=== PATIENT | female | born 1955 | race Caucasian/White ===

== ENCOUNTER 2020-09-06 14:25 | Outpatient (REF) | payer BC, SELFPAY ==
[2020-09-06 14:34] LABS: MANUAL DIFF FLAG NO
[2020-09-06 14:39] LABS: Basophils Percent Auto 0.6 % (0-2); Eosinophils Absolute Auto 0.2 X10*3/uL (0.0-0.4); Eosinophils Percent Auto 3.4 % (0-4); Hematocrit 29.6 % (37-47); Hemoglobin 9.6 g/dl (12.0-16.0); Imm Gran Abs Auto 0.03 X10*3/uL (0.00-0.03); Imm Gran Pct Auto 0.6 % (0.0-0.4); Lymphocytes Percent Auto 20.9 % (20-40); Mean Corpuscular HGB Conc 32.4 g/dl (31.0-35.0); Mean Corpuscular Hemoglobin 27.7 pg (27.0-33.0); Mean Corpuscular Volume 85.5 fL (80-98); Monocytes Absolute Auto 0.4 X10*3/uL (0.1-1.2); Monocytes Percent Auto 9.1 % (2-11); Neutrophils Absolute Auto 3.1 X10*3/uL (2.0-8.3); Neutrophils Percent Auto 65.4 % (45-73); Platelet Count 307 X10*3/uL (160-400); Red Blood Count 3.46 X10*6/uL (4.20-5.50); Red Cell Distribution Width 13.7 % (11.0-16.0); White Blood Count 4.7 X10*3/uL (4.8-10.8)
[2020-09-06 15:14] LABS: Alanine Aminotransferase 11 U/L (0-31); Albumin Level 3.4 g/dL (3.5-5.0); Alkaline Phosphatase 90 U/L (39-117); Aspartate Amino Transferase 17 U/L (5-31); Bilirubin Direct < 0.2 mg/dL (0.0-0.5); Bilirubin Total 0.3 mg/dL (0.0-1.0); Blood Urea Nitrogen 13 mg/dL (9-16); Estimated Glomerular Filt Rate > 60; Total Protein 5.6 g/dL (6.5-8.0)
== END 2020-09-06 14:26 | disposition home or self-care (01) ==
LOC: HO.HVNA 14:25
PROVIDERS: PCP Internal Medicine; Visit Provider Internal Medicine Infectious Disease
DX: B99.9 Unspecified infectious disease (principal); Z79.2 Long term (current) use of antibiotics
CPT/HCPCS: 80076; 80202; 82565; 84520; 85025

== ENCOUNTER 2020-09-13 10:10 | Outpatient (REF) | payer BC, SELFPAY ==
[2020-09-13 10:17] LABS: MANUAL DIFF FLAG NO
[2020-09-13 10:20] LABS: Basophils Percent Auto 0.5 % (0-2); Eosinophils Absolute Auto 0.2 X10*3/uL (0.0-0.4); Eosinophils Percent Auto 4.6 % (0-4); Hematocrit 34.2 % (37-47); Hemoglobin 10.9 g/dl (12.0-16.0); Imm Gran Abs Auto 0.02 X10*3/uL (0.00-0.03); Imm Gran Pct Auto 0.5 % (0.0-0.4); Lymphocytes Absolute Auto 0.9 X10*3/uL (1.2-4.9); Lymphocytes Percent Auto 25.4 % (20-40); Mean Corpuscular HGB Conc 31.9 g/dl (31.0-35.0); Mean Corpuscular Hemoglobin 27.2 pg (27.0-33.0); Mean Corpuscular Volume 85.3 fL (80-98); Mean Platelet Volume 9.1 fL (9.4-12.3); Monocytes Absolute Auto 0.5 X10*3/uL (0.1-1.2); Monocytes Percent Auto 13.4 % (2-11); Neutrophils Percent Auto 55.6 % (45-73); Platelet Count 300 X10*3/uL (160-400); Red Blood Count 4.01 X10*6/uL (4.20-5.50); Red Cell Distribution Width 13.9 % (11.0-16.0); White Blood Count 3.7 X10*3/uL (4.8-10.8)
[2020-09-13 11:19] LABS: Alanine Aminotransferase 12 U/L (0-31); Albumin Level 3.7 g/dL (3.5-5.0); Alkaline Phosphatase 110 U/L (39-117); Aspartate Amino Transferase 19 U/L (5-31); Bilirubin Direct 0.2 mg/dL (0.0-0.5); Bilirubin Total 0.5 mg/dL (0.0-1.0); Blood Urea Nitrogen 12 mg/dL (9-16); Estimated Glomerular Filt Rate > 60; Total Protein 6.3 g/dL (6.5-8.0)
[2020-09-13 11:38] LABS: Vancomycin Trough 15.1 mcg/mL (10.0-20.0)
== END 2020-09-13 10:11 | disposition home or self-care (01) ==
LOC: HO.HVNA 10:10
PROVIDERS: Visit Provider Internal Medicine Infectious Disease
DX: T84.53XA Infection and inflammatory reaction due to internal right knee prosthesis, initial encounter (principal); Z79.2 Long term (current) use of antibiotics
CPT/HCPCS: 36415; 80076; 80202; 82565; 84520; 85025

== ENCOUNTER 2020-09-16 10:18 | Outpatient (REF) | payer BC, SELFPAY ==
[2020-09-16 11:08] LABS: Blood Urea Nitrogen 12 mg/dL (9-16); C Reactive Protein 1.56 mg/dL (< or = 0.50); Estimated Glomerular Filt Rate > 60
[2020-09-16 11:32] LABS: Erythrocyte Sedimentation Rate 17 MM/HR (0-20)
[2020-09-16 11:34] LABS: Vancomycin Trough 15.4 mcg/mL (10.0-20.0)
== END 2020-09-16 10:19 | disposition home or self-care (01) ==
LOC: HO.HVNA 10:18
PROVIDERS: Visit Provider Internal Medicine Infectious Disease
DX: T84.53XA Infection and inflammatory reaction due to internal right knee prosthesis, initial encounter (principal); Z79.2 Long term (current) use of antibiotics
CPT/HCPCS: 36415; 80202; 82565; 84520; 85652; 86140

== ENCOUNTER 2020-09-20 09:55 | Outpatient (REF) | payer BC, SELFPAY ==
[2020-09-20 10:08] LABS: Basophils Percent Auto 0.9 % (0-2); Eosinophils Absolute Auto 0.2 X10*3/uL (0.0-0.4); Hematocrit 34.4 % (37-47); Hemoglobin 11.2 g/dl (12.0-16.0); Imm Gran Abs Auto 0.01 X10*3/uL (0.00-0.03); Imm Gran Pct Auto 0.5 % (0.0-0.4); Lymphocytes Absolute Auto 0.6 X10*3/uL (1.2-4.9); Lymphocytes Percent Auto 28.6 % (20-40); MANUAL DIFF FLAG SCAN; Mean Corpuscular HGB Conc 32.6 g/dl (31.0-35.0); Mean Corpuscular Hemoglobin 27.3 pg (27.0-33.0); Mean Corpuscular Volume 83.9 fL (80-98); Monocytes Absolute Auto 0.4 X10*3/uL (0.1-1.2); Monocytes Percent Auto 16.9 % (2-11); Neutrophils Percent Auto 45.1 % (45-73); Platelet Count 201 X10*3/uL (160-400); Red Cell Distribution Width 13.7 % (11.0-16.0); SCAN SMEAR FLAG 1
[2020-09-20 10:11] LABS: White Blood Count 2.1 X10*3/uL (4.8-10.8)
[2020-09-20 10:18] LABS: Alanine Aminotransferase 15 U/L (0-31); Albumin Level 3.9 g/dL (3.5-5.0); Alkaline Phosphatase 120 U/L (39-117); Aspartate Amino Transferase 21 U/L (5-31); Bilirubin Direct 0.2 mg/dL (0.0-0.5); Bilirubin Total 0.5 mg/dL (0.0-1.0); Blood Urea Nitrogen 9 mg/dL (9-16); Estimated Glomerular Filt Rate > 60; Total Protein 6.5 g/dL (6.5-8.0)
[2020-09-20 10:25] LABS: SLIDE REVIEW VERIFIED
[2020-09-20 10:37] LABS: Vancomycin Trough 14.9 mcg/mL (10.0-20.0)
== END 2020-09-20 09:56 | disposition home or self-care (01) ==
LOC: HO.LNP 09:55
PROVIDERS: Visit Provider Internal Medicine Infectious Disease
DX: T84.53XA Infection and inflammatory reaction due to internal right knee prosthesis, initial encounter (principal); Z79.2 Long term (current) use of antibiotics
CPT/HCPCS: 80076; 80202; 82565; 84520; 85025

== ENCOUNTER 2020-09-23 10:30 | Outpatient (REF) | payer BC, SELFPAY ==
[2020-09-23 11:11] LABS: Basophils Percent Auto 1.2 % (0-2); Eosinophils Absolute Auto 0.2 X10*3/uL (0.0-0.4); Eosinophils Percent Auto 10.7 % (0-4); Hematocrit 33.9 % (37-47); Hemoglobin 10.8 g/dl (12.0-16.0); Imm Gran Abs Auto 0.01 X10*3/uL (0.00-0.03); Imm Gran Pct Auto 0.6 % (0.0-0.4); Lymphocytes Absolute Auto 0.6 X10*3/uL (1.2-4.9); Lymphocytes Percent Auto 34.3 % (20-40); MANUAL DIFF FLAG SCAN; Mean Corpuscular HGB Conc 31.9 g/dl (31.0-35.0); Mean Corpuscular Hemoglobin 26.8 pg (27.0-33.0); Mean Corpuscular Volume 84.1 fL (80-98); Mean Platelet Volume 9.7 fL (9.4-12.3); Monocytes Absolute Auto 0.2 X10*3/uL (0.1-1.2); Monocytes Percent Auto 14.2 % (2-11); Neutrophils Absolute Auto 0.7 X10*3/uL (2.0-8.3); Platelet Count 182 X10*3/uL (160-400); Red Blood Count 4.03 X10*6/uL (4.20-5.50); Red Cell Distribution Width 13.8 % (11.0-16.0); SCAN SMEAR FLAG 1
[2020-09-23 11:26] LABS: White Blood Count 1.7 X10*3/uL (4.8-10.8)
[2020-09-23 11:42] LABS: Blood Urea Nitrogen 8 mg/dL (9-16); Estimated Glomerular Filt Rate > 60
[2020-09-23 11:46] LABS: Vancomycin Trough 14.7 mcg/mL (10.0-20.0)
[2020-09-23 12:05] LABS: SLIDE REVIEW VERIFIED
== END 2020-09-23 10:31 | disposition home or self-care (01) ==
LOC: HO.LNP 10:30
PROVIDERS: Visit Provider Internal Medicine Infectious Disease
DX: T84.53XA Infection and inflammatory reaction due to internal right knee prosthesis, initial encounter (principal); Z45.2 Encounter for adjustment and management of vascular access device
CPT/HCPCS: 80202; 82565; 84520; 85025

== ENCOUNTER 2020-09-27 11:12 | Outpatient (REF) | payer BC, SELFPAY ==
[2020-09-27 11:23] LABS: MANUAL DIFF FLAG NO
[2020-09-27 11:28] LABS: Basophils Percent Auto 1.1 % (0-2); Eosinophils Absolute Auto 0.2 X10*3/uL (0.0-0.4); Eosinophils Percent Auto 4.6 % (0-4); Hematocrit 35.4 % (37-47); Hemoglobin 11.3 g/dl (12.0-16.0); Imm Gran Abs Auto 0.02 X10*3/uL (0.00-0.03); Imm Gran Pct Auto 0.5 % (0.0-0.4); Lymphocytes Absolute Auto 1.6 X10*3/uL (1.2-4.9); Lymphocytes Percent Auto 42.7 % (20-40); Mean Corpuscular HGB Conc 31.9 g/dl (31.0-35.0); Mean Corpuscular Hemoglobin 26.8 pg (27.0-33.0); Mean Corpuscular Volume 83.9 fL (80-98); Mean Platelet Volume 9.1 fL (9.4-12.3); Monocytes Absolute Auto 0.3 X10*3/uL (0.1-1.2); Monocytes Percent Auto 8.1 % (2-11); Neutrophils Absolute Auto 1.6 X10*3/uL (2.0-8.3); Platelet Count 248 X10*3/uL (160-400); Red Blood Count 4.22 X10*6/uL (4.20-5.50); Red Cell Distribution Width 13.7 % (11.0-16.0); White Blood Count 3.7 X10*3/uL (4.8-10.8)
[2020-09-27 12:04] LABS: Alanine Aminotransferase 58 U/L (0-31); Alkaline Phosphatase 113 U/L (39-117); Aspartate Amino Transferase 36 U/L (5-31); Bilirubin Direct 0.2 mg/dL (0.0-0.5); Bilirubin Total 0.5 mg/dL (0.0-1.0); Blood Urea Nitrogen 11 mg/dL (9-16); Estimated Glomerular Filt Rate > 60; Total Protein 6.6 g/dL (6.5-8.0)
== END 2020-09-27 11:13 | disposition home or self-care (01) ==
LOC: HO.LNP 11:12
PROVIDERS: Visit Provider Internal Medicine Infectious Disease
DX: T84.53XA Infection and inflammatory reaction due to internal right knee prosthesis, initial encounter (principal); Z79.2 Long term (current) use of antibiotics
CPT/HCPCS: 80076; 82550; 82565; 84520; 85025

== ENCOUNTER 2020-10-04 12:25 | Outpatient (REF) | payer BC, SELFPAY ==
[2020-10-04 12:30] LABS: MANUAL DIFF FLAG NO
[2020-10-04 12:39] LABS: Basophils Absolute Auto 0.1 X10*3/uL (0.0-0.2); Basophils Percent Auto 1.9 % (0-2); Eosinophils Absolute Auto 0.1 X10*3/uL (0.0-0.4); Eosinophils Percent Auto 2.9 % (0-4); Hematocrit 35.9 % (37-47); Hemoglobin 11.3 g/dl (12.0-16.0); Imm Gran Abs Auto 0.01 X10*3/uL (0.00-0.03); Imm Gran Pct Auto 0.2 % (0.0-0.4); Lymphocytes Absolute Auto 1.6 X10*3/uL (1.2-4.9); Lymphocytes Percent Auto 37.9 % (20-40); Mean Corpuscular HGB Conc 31.5 g/dl (31.0-35.0); Mean Corpuscular Hemoglobin 26.5 pg (27.0-33.0); Mean Corpuscular Volume 84.3 fL (80-98); Mean Platelet Volume 8.9 fL (9.4-12.3); Monocytes Absolute Auto 0.4 X10*3/uL (0.1-1.2); Monocytes Percent Auto 10.4 % (2-11); Neutrophils Absolute Auto 1.9 X10*3/uL (2.0-8.3); Neutrophils Percent Auto 46.7 % (45-73); Platelet Count 289 X10*3/uL (160-400); Red Blood Count 4.26 X10*6/uL (4.20-5.50); Red Cell Distribution Width 13.9 % (11.0-16.0); White Blood Count 4.1 X10*3/uL (4.8-10.8)
[2020-10-04 13:20] LABS: Alanine Aminotransferase 13 U/L (0-31); Albumin Level 3.9 g/dL (3.5-5.0); Alkaline Phosphatase 103 U/L (39-117); Aspartate Amino Transferase 15 U/L (5-31); Bilirubin Direct 0.2 mg/dL (0.0-0.5); Bilirubin Total 0.5 mg/dL (0.0-1.0); Blood Urea Nitrogen 11 mg/dL (9-16); Estimated Glomerular Filt Rate > 60; Total Protein 6.2 g/dL (6.5-8.0)
== END 2020-10-04 12:26 | disposition home or self-care (01) ==
LOC: HO.HVNA 12:25
PROVIDERS: Visit Provider Internal Medicine Infectious Disease
DX: Z45.2 Encounter for adjustment and management of vascular access device (principal); T84.53XA Infection and inflammatory reaction due to internal right knee prosthesis, initial encounter; Z79.2 Long term (current) use of antibiotics
CPT/HCPCS: 36415; 80076; 82550; 82565; 84520; 85025

== ENCOUNTER 2020-10-11 11:43 | Outpatient (REF) | payer BC, SELFPAY ==
[2020-10-11 11:48] LABS: MANUAL DIFF FLAG NO
[2020-10-11 11:54] LABS: Basophils Absolute Auto 0.1 X10*3/uL (0.0-0.2); Basophils Percent Auto 1.1 % (0-2); Eosinophils Absolute Auto 0.1 X10*3/uL (0.0-0.4); Hematocrit 35.8 % (37-47); Hemoglobin 11.5 g/dl (12.0-16.0); Imm Gran Abs Auto 0.01 X10*3/uL (0.00-0.03); Imm Gran Pct Auto 0.2 % (0.0-0.4); Lymphocytes Absolute Auto 1.5 X10*3/uL (1.2-4.9); Mean Corpuscular HGB Conc 32.1 g/dl (31.0-35.0); Mean Corpuscular Hemoglobin 27.4 pg (27.0-33.0); Mean Corpuscular Volume 85.2 fL (80-98); Mean Platelet Volume 9.5 fL (9.4-12.3); Monocytes Absolute Auto 0.5 X10*3/uL (0.1-1.2); Neutrophils Absolute Auto 2.5 X10*3/uL (2.0-8.3); Neutrophils Percent Auto 54.7 % (45-73); Platelet Count 258 X10*3/uL (160-400); Red Cell Distribution Width 14.1 % (11.0-16.0); White Blood Count 4.6 X10*3/uL (4.8-10.8)
[2020-10-11 12:32] LABS: Alanine Aminotransferase 9 U/L (0-31); Alkaline Phosphatase 105 U/L (39-117); Aspartate Amino Transferase 16 U/L (5-31); Bilirubin Direct 0.2 mg/dL (0.0-0.5); Bilirubin Total 0.3 mg/dL (0.0-1.0); Blood Urea Nitrogen 12 mg/dL (9-16); Estimated Glomerular Filt Rate > 60; Total Protein 6.4 g/dL (6.5-8.0)
== END 2020-10-11 11:44 | disposition home or self-care (01) ==
LOC: HO.HVNA 11:43
PROVIDERS: Visit Provider Internal Medicine Infectious Disease
DX: B99.9 Unspecified infectious disease (principal); Z79.2 Long term (current) use of antibiotics
CPT/HCPCS: 36415; 80076; 82550; 82565; 84520; 85025

== ENCOUNTER 2022-10-24 09:20 | Emergency (ER) | payer BC, SELFPAY ==
[2022-10-24 09:25] VITALS: BP 179/96; PULSE 74; RESP 18; TEMP 36.5; O2SAT 99; BMI 25.3
[2022-10-24 10:36] VITALS: BP 157/84; PULSE 70; RESP 18; TEMP 36.5; O2SAT 98
--- NOTE | 2022-10-24 10:39 | PC.NURSE ---
pt a&ox3, vss, pt comes in after having right knee surgery in september. pt states that she has been doing PT and exercises that has been aggravating her back. pt has hx of chronic back pain for the past 1.5 years. pt states that she went to see her PCP to try and get more information on what's been causing her back pain. pcp had pt get mri - mri stated that she possibly has osteomyelitis in her spine. pt pcp on doretha so office advised her to come here. pt verbalizing 3/10 lower back pain that is worse on the right side and radiates towards her hip. call martinez placed within reach. will continue to monitor.
--- NOTE | 2022-10-24 10:44 | PC.NURSE ---
pt had right knee surgery september 22 - knee aspiration content on the - grew culture in the lab - infection was identified. pt has had PICC line since september 24.
--- NOTE | 2022-10-24 11:08 | PC.NURSE ---
pt right knee showing 1+ non-pitting edema. pt verbalizes slight tenderness to the touch. warm to the touch. pulses palpable. no drainage noted coming from incision. incision well approximated showing no signs of dehiscence/evisceration.
--- NOTE | 2022-10-24 11:18 | ED_ITS ---
[facility] Chief complaint: Back Pain/Injury Stated complaint: Back Pain ? Infection Time Seen by Provider: 10/24/22 10:30 Source: patient and old records reviewed Mode of arrival: ambulatory Limitations: no limitations History of Present Illness HPI narrative: Patient is a 67-year-old female with history of hypertension, bilateral knee replacements presenting to the emergency department at the referral of her PCP stating osteomyelitis was found on her outpatient MRI from 10/21/22. Patient had bilateral knee replacements in September of 2019. In August 2020 she developed an infection to her right knee, had a revision in October of 2020. States her low back pain began around that time. She saw PT, went to [facility], had injections all without improvement. In September of this year she again developed a right knee infection. Her orthopedic surgery was at [facility]. On September 22 of this year she had a washout of her right knee with pieces of her knee replacement exchanged. She saw Infectious Disease at [facility] and was started on penicillin via PICC line for 4-6 weeks for strep infection. Patient states she has been on the penicillin for 4 weeks. She states that when she began performing [id number] exercises following her most recent knee surgery she developed worsening lower back pain which radiates into her right hip. States she is unsure if the pain worsened or if she noticed it more as she had previously been on pain medication from her knee surgery. She reports the pain is worse with range of motion, improves with position changes. She contacted her PCP regarding this and he ordered an MRI. States PCP called her Sunday night and advised her to be evaluated in the emergency department as MRI showed osteomyelitis. Patient contacted her surgeons in [place], they feel this is unrelated to her knee infection. Patient also made an appointment with Dr. Beyer at [facility] but that is not until December. She states pain occasionally radiates down left leg with certain positions, describes the pain as spasms. Denies any fever since September 21 of this year. Has been taking Tylenol twice daily as well as 81 mg of aspirin. She denies any saddle anesthesia or bowel or bladder incontinence. complaint: back pain Onset (ago): year(s) Location: back Radiation: extremity and distal Severity: moderate Quality: aching Pain Consistency: intermittent Relieving factors: other (position changes) Associated symptoms: denies other symptoms Treatments prior to arrival: aspirin and other (Tylenol) Related Data Allergies Allergy/AdvReac Type Severity Reaction Status Date / Time ceftriaxone AdvReac Unknown Verified 10/24/22 11:46 oxycodone AdvReac Unknown Verified 10/24/22 11:46 vancomycin AdvReac Unknown Verified 10/24/22 11:46 Review of Systems Review of Systems: As per HPI. Yes all other systems are reviewed and are negative Constitutional: Constitutional: Reports as per HPI [facility] Past Medical History Medical History (Updated 10/24/22 @ 13:14 by Samantha Odonnell NP) Hypertension Pre-diabetes Social History Social History Alcohol intake: current Alcohol intake frequency: 0-2 drinks per day Alcohol type: hard liquor Smoked in Last 30 Days: No Use of substances other than those prescribed or required for medical reasons: No Advance Directives: No Advance Directives Information Provided: Yes Physical Exam ED Vital Signs: Vital Signs - 24 hr 10/24/22 09:25 10/24/22 10:36 10/24/22 13:22 Temperature 97.7 F 97.7 F 98.5 F Pulse Rate 74 70 69 Respiratory Rate 18 18 16 Blood Pressure 179/96 H 157/84 H 145/79 H Pulse Oximetry 99 98 98 Oxygen Delivery Method Room Air Room Air Room Air BMI result Body Mass Index 25.3 Vital signs have been reviewed and appear to be correct. Blood pressure elevated, hx HTN. Heart rate normal. Respiratory rate normal. Temperature normal. Oxygen saturation normal. Const General: cooperative, healthy appearing and no acute distress Orientation/consciousness: oriented to person, oriented to place, oriented to time and patient oriented x3 Limitations: no limitations [facility] Head: Yes normocephalic and Yes atraumatic Ears: external ears normal General nose exam: Normal external nose present Face and sinus: Yes face symmetric Mouth: oropharynx normal and moist mucous membranes Throat: Yes uvula midline Eyes Pupils: Equal, round and reactive pupils present Neck Neck: Yes normal visual inspection and Yes supple Resp Effort & Inspection: normal respiratory effort and able to speak in complete sentences Auscultation: clear to auscultation bilaterally Cardio Rate: regular rate Rhythm: regular rhythm Heart sounds: S1 normal heart sound present and S2 normal heart sound present GI Palpation (GI): Soft to palpation and nontender Auscultation: normoactive bowel sounds General: Yes no CVA tenderness Back/Spine/Pelvis Back: no CVA tenderness Cervical Spine: normal cervical lordosis and cervical ROM normal Thoracic/Lumbar Spine: thoracic and lumbar spine normal to inspection, thoraco- lumbar ROM normal, paraspinal muscle tenderness bilaterally in the mid lumbar, No thoracic spinal tenderness and No lumbar spinal tenderness Skin General skin exam: elasticity normal and turgor normal Neuro General: oriented to person, oriented to place, oriented to time, patient oriented x3, moves all extremities, no focal motor deficits and CN's II-XI intact bilaterally Cranial nerves: Yes Equal, round and reactive pupils present Cognition (Neuro): normal cognition Extrem General: Yes full ROM, Yes capillary refill normal, Yes normal exam except as noted, Yes no pedal edema and Yes no calf tenderness Right lower extremity: knee Details: abnormal to inspection Details: other (surgical incision, no erythema, warmth or drainage, moderate edema) and foot Details: vascular exam Details: dorsalis pedis pulse present, posterior tibial pulse present and normal capillary refill Psych Mental Status: mental status grossly normal Affect: normal affect Thought process: Normal thought process present Medications Administered Discontinued Medications Generic Name Dose Route Start Last Admin Trade Name Freq PRN Reason Stop Dose Admin Piperacillin Sod/Tazobactam 50 mls @ 100 mls/hr 10/24/22 11:19 10/24/22 13:01 Sod 3.375 gm/ Sodium Chloride IV 10/24/22 11:48 Infused ONCE ONE Infusion Medical Decision Making Medical Decision Making [facility] Narrative: Patient is a 67-year-old female with history of hypertension, bilateral knee replacements presenting to the emergency department at the referral of her PCP stating osteomyelitis was found on her outpatient MRI from 10/21/22. On exam patient is awake, A+Ox3, VS WNL, afebrile, normal neurological exam without focal deficits, no midline spinal tenderness, some lumbar paraspinal tenderness, DTRs 2+, surgical incision to right knee is without erythema, warmth or drainage. MRI impression from 10/21/22 states Irregular cortex of the endplates of L3-4 in the right with associated enhancing bony edema. These findings are new from radiograph 03/22/2021. Minimally increased T2 signal. No fluid collection or surrounding inflammatory changes. Differential diagnosis includes fevers chronic osteomyelitis with possible acute component. Also the differential is type 1 Modic degenerative changes. Given reported symptoms and physical exam findings, initial differential includes lumbar osteomyelitis, lumbar strain, lumbar radiculopathy, degenerative disease. Do not suspect sepsis at this time. Discussed case with Dr. Culver. Will obtain basic labs, cultures, lactic, ESR, CRP. Patient initially stated that she had no known allergies. Vanco and Zosyn were ordered and patient then stated that she has allergies to vanco and ceftriaxone, but is unsure of reactions. Will discontinue Vanco at this time but will continue with Zosyn as patient is currently receiving PCN. Labs notable for elevated ESR/CRP, as well as elevated lactic, no leukocytosis. Still do not suspect sepsis but Zosyn has been ordered. Spoke with Dr. Melva Sanford from [facility] infectious disease who recommends percutaneous IR guided culture of suspected osteo or biopsy prior to additional antibiotics. She can be reached at , pager # [phone]. Henriette text to Dr. Hou to discuss admission. Spoke with SYDNIE Jeong who feels patient does not meet admission criteria, could go home with IV antibiotics as she already has PICC line. She recommended discussing the case with Dr. Alva. 14:[address] Alva from infectious disease via Henriette text. She feels this is likely not acute, states patient does not require additional antibiotics at this time but recommends blood cultures which have been drawn. Patient is seeing ALYSSA Miller [place] [facility] this [place]. Instructed patient to follow up with her PCP as well as Dr. Alva. Return precautions discussed at bedside. Patient and verbalized understanding of and agreement with plan of care. Differential Diagnosis Differential Diagnoses: The differential diagnosis associated with the presen tation includes As per MDM. Admission/Observation Consideration of admission/observation: Escalation of care including admissio n/observation considered Consult Healthcare Provider Management of the patient was discussed with: [employer] (Dr. Alva, infectious disease) Dr. Melva Sanford, [facility] [place] Lab Data [facility] Lab Attestation statement: I reviewed the patient's lab results. As per MDM. 10/24/22 11:52 10/24/22 11:52 Labs: Lab Results 10/24/22 10/24/22 10/24/22 Range/Units 11:52 11:52 11:52 WBC 6.4 (4.8-10.8) X10*3/uL RBC 4.29 (4.20-5.50) X10*6/uL Hgb 12.9 (12.0-16.0) g/dl Hct 38.4 (37.0-47.0) % MCV 89.5 (80.0-98.0) fL MCH 30.1 (27.0-33.0) pg MCHC 33.6 (31.0-35.0) g/dl RDW 13.1 (11.0-16.0) % Plt Count 286 (160-400) X10*3/uL MPV 9.0 L (9.4-12.3) fL Immature Gran % (Auto) 0.5 H (0.0-0.4) % Neut % (Auto) 72.7 (45-73) % Lymph % (Auto) 18.8 L (20-40) % Ware % (Auto) 6.9 (2-11) % Eos % (Auto) 0.6 (0-4) % Baso % (Auto) 0.5 (0-2) % Lymph # (Auto) 1.2 (1.2-4.9) X10*3/uL Ware # (Auto) 0.4 (0.1-1.2) X10*3/uL Eos # (Auto) 0.0 (0.0-0.4) X10*3/uL Baso # (Auto) 0.0 (0.0-0.2) X10*3/uL Abs Immat Gran (auto) 0.03 (0.00-0.03) X10*3/uL Absolute Neuts (auto) 4.7 (2.0-8.3) x10*3/uL Absolute Nucleated RBC 0.000 (0.0-0.012) X10*3/uL Nucleated RBC % (auto) 0.0 (0.0-0.2) /100WBC ESR 23 H (0-20) MM/HR Sodium 140 (135-145) mmol/L Potassium 4.3 (3.3-5.1) mmol/L Chloride 104 (96-108) mmol/L Carbon Dioxide 25 (22-29) mmol/L Anion Gap 15 (12-20) BUN 8 L (9-16) mg/dL Creatinine 0.68 (0.5-1.4) mg/dL Estim Creat Clear Calc 81.2 Estimated GFR > 60 Random Glucose 144 H (60-115) mg/dL Lactic Acid (0.5-2.0) mmol/L Calcium 9.6 (8.4-10.2) mg/dL Total Bilirubin 0.3 (0.0-1.0) mg/dL AST 17 (5-31) U/L ALT 9 (0-31) U/L Alkaline Phosphatase 149 H (39-117) U/L C-Reactive Protein 1.74 H (< or = 0.50) mg/dL Total Protein 7.6 (6.5-8.0) g/dL Albumin 4.0 (3.5-5.0) g/dL 10/24/22 Range/Units 11:52 WBC (4.8-10.8) X10*3/uL RBC (4.20-5.50) X10*6/uL Hgb (12.0-16.0) g/dl Hct (37.0-47.0) % MCV (80.0-98.0) fL MCH (27.0-33.0) pg MCHC (31.0-35.0) g/dl RDW (11.0-16.0) % Plt Count (160-400) X10*3/uL MPV (9.4-12.3) fL Immature Gran % (Auto) (0.0-0.4) % Neut % (Auto) (45-73) % Lymph % (Auto) (20-40) % Ware % (Auto) (2-11) % Eos % (Auto) (0-4) % Baso % (Auto) (0-2) % Lymph # (Auto) (1.2-4.9) X10*3/uL Ware # (Auto) (0.1-1.2) X10*3/uL Eos # (Auto) (0.0-0.4) X10*3/uL Baso # (Auto) (0.0-0.2) X10*3/uL Abs Immat Gran (auto) (0.00-0.03) X10*3/uL Absolute Neuts (auto) (2.0-8.3) x10*3/uL Absolute Nucleated RBC (0.0-0.012) X10*3/uL Nucleated RBC % (auto) (0.0-0.2) /100WBC ESR (0-20) MM/HR Sodium (135-145) mmol/L Potassium (3.3-5.1) mmol/L Chloride (96-108) mmol/L Carbon Dioxide (22-29) mmol/L Anion Gap (12-20) BUN (9-16) mg/dL Creatinine (0.5-1.4) mg/dL Estim Creat Clear Calc Estimated GFR Random Glucose (60-115) mg/dL Lactic Acid 2.4 H* (0.5-2.0) mmol/L Calcium (8.4-10.2) mg/dL Total Bilirubin (0.0-1.0) mg/dL AST (5-31) U/L ALT (0-31) U/L Alkaline Phosphatase (39-117) U/L C-Reactive Protein (< or = 0.50) mg/dL Total Protein (6.5-8.0) g/dL Albumin (3.5-5.0) g/dL Independent Historian Clinical information obtained from an independent historian. History obtained from or confirmed by: Spouse External Record Review External record reviewed: Inpatient record, Office record, Outpatient record, Prior outpatient radiology and Other Prescription Management I considered prescription management with: Antibiotic Critical Care Time Critical Care Time Critical Care Time: Yes Total Critical Care Time: 40 Attestation: I have personally provided critical care time exclusive of time spent on separately billable procedures. Time includes review of lab data, radiology results, discussion with consultants, and monitoring for potential decompe nsation. Intervention performed as documented. Discharge Plan Discharge Clinical Impression: Osteomyelitis of lumbar spine Patient Disposition: Home, Self-Care Instructions: Chronic Back Pain (DC) Additional Instructions: You were evaluated in the emergency department today for concern of osteo myelitis on your outpatient MRI. After discussion with the infectious disease provider, it has been determined you are stable for discharge home and do not require additional antibiotics or admission at this time. If the results of your blood cultures require a change in your treatment, you will be contacted. Please follow up with your primary care provider as well as with our infectious disease specialist, Dr. Alva. Please keep your appointment with Dr. Sanford, the infectious disease doctor at [facility] this week. Return to the emergency department with any worsening pain, new numbness or tingling to your lower extremities, new weakness to her lower extremities, numbness or tingling to her groin, loss bowel or bladder control, fever 100.4? F or greater, or any other concerning symptoms. Referrals: [facility] Infectious Disease [Provider Group] JULINAA ALVA MD [Physician] -
[2022-10-24 12:01] LABS: MANUAL DIFF FLAG NO
[2022-10-24 12:03] LABS: Basophils Percent Auto 0.5 % (0-2); Eosinophils Percent Auto 0.6 % (0-4); Hematocrit 38.4 % (37.0-47.0); Hemoglobin 12.9 g/dl (12.0-16.0); Imm Gran Abs Auto 0.03 X10*3/uL (0.00-0.03); Imm Gran Pct Auto 0.5 % (0.0-0.4); Lymphocytes Absolute Auto 1.2 X10*3/uL (1.2-4.9); Lymphocytes Percent Auto 18.8 % (20-40); Mean Corpuscular HGB Conc 33.6 g/dl (31.0-35.0); Mean Corpuscular Hemoglobin 30.1 pg (27.0-33.0); Mean Corpuscular Volume 89.5 fL (80.0-98.0); Monocytes Absolute Auto 0.4 X10*3/uL (0.1-1.2); Monocytes Percent Auto 6.9 % (2-11); Neutrophils Absolute Auto 4.7 x10*3/uL (2.0-8.3); Neutrophils Percent Auto 72.7 % (45-73); Platelet Count 286 X10*3/uL (160-400); Red Blood Count 4.29 X10*6/uL (4.20-5.50); Red Cell Distribution Width 13.1 % (11.0-16.0); White Blood Count 6.4 X10*3/uL (4.8-10.8)
--- NOTE | 2022-10-24 12:17 | PC.NURSE ---
20g IV placed in the left AC w/o complications. 2nd set of cultures drawn and sent to lab.
[2022-10-24 12:19] LABS: Alanine Aminotransferase 9 U/L (0-31); Alkaline Phosphatase 149 U/L (39-117); Anion Gap 15 (12-20); Aspartate Amino Transferase 17 U/L (5-31); Bilirubin Total 0.3 mg/dL (0.0-1.0); Blood Urea Nitrogen 8 mg/dL (9-16); C Reactive Protein 1.74 mg/dL (< or = 0.50); Calcium 9.6 mg/dL (8.4-10.2); Carbon Dioxide 25 mmol/L (22-29); Chloride 104 mmol/L (96-108); Creatinine Clr Calc Pharmacy 81.2; Estimated Glomerular Filt Rate > 60; Glucose Random 144 mg/dL (60-115); Potassium 4.3 mmol/L (3.3-5.1); Sodium 140 mmol/L (135-145); Total Protein 7.6 g/dL (6.5-8.0)
[2022-10-24 12:22] LABS: Lactic Acid 2.4 mmol/L (0.5-2.0)
[2022-10-24] MEDS: Piperacillin Sodium/Tazobactam 3.375 GM in 0.9 % Sodium Chloride 50 ML IV (12:30)
--- NOTE | 2022-10-24 12:31 | PC.NURSE ---
medication administered per provider order.
[2022-10-24 12:44] LABS: Erythrocyte Sedimentation Rate 23 MM/HR (0-20)
--- NOTE | 2022-10-24 13:05 | PC.NURSE ---
abx completely infused and d/c'd.
[2022-10-24 13:22] VITALS: BP 145/79; PULSE 69; RESP 16; TEMP 36.9; O2SAT 98
--- NOTE | 2022-10-24 13:22 | PC.NURSE ---
a&ox3, vss, pt pain level reassessed - pt verbalizing no change in pain and that the level stays the same at a 3/10. pt resting comfortably with bedside.
[2022-10-24 13:58] LABS: Reflex Lactate? Lactic Acid Added
[2022-10-24 14:26] VITALS: BP 127/72; PULSE 65; O2SAT 96
[2022-10-24 14:39] LABS: ~Lactic Acid-LAB USE ONLY 2.4 mmol/L (0.5-2.0)
[2022-10-24 16:11] LABS: Reflex Lactate? 2 Y
== END 2022-10-24 14:46 | disposition home or self-care (01) ==
PROVIDERS: Registered Nurse Emergency; Emergency Provider Emergency Medicine; PCP Internal Medicine
DX: M46.26 Osteomyelitis of vertebra, lumbar region (principal); Z79.899 Other long term (current) drug therapy
CPT/HCPCS: 36415; 80053; 83605; 85025; 85652; 86140; 87040; 96365; 99284; 99285; J2543